=== PATIENT | male | born 1965 | race Caucasian/White ===

== ENCOUNTER → 2022-05-30 | Outpatient (CLI) | payer BC, OTHER | LOC: M EKG 07:51 | PROVIDERS: ATTEND Orthopaedic Surgery | DX: S83.242D Other tear of medial meniscus, current injury, left knee, subsequent encounter (principal); M17.12 Unilateral primary osteoarthritis, left knee ==

== ENCOUNTER 2023-09-30 16:39 | Emergency (ER) | payer BC, OTHER ==
[~2023-09-30] VITALS: Ht 180.3 cm; Wt 104.5 kg
[2023-09-30] MEDS ORDERED: IBUP-1022 PO (18:21)
[2023-09-30 18:28] VITALS: BP 152/90; TEMP 97.7; O2SAT 98
== END 2023-09-30 18:43 | disposition home or self-care (01) ==
LOC: M ED 16:39
DX: M23.91 Unspecified internal derangement of right knee (principal); F10.10 Alcohol abuse, uncomplicated